=== PATIENT | male | born 1945 | race Caucasian/White ===

== ENCOUNTER 2019-01-13 16:13 | Emergency (ER) | payer MEDICARE ==
[~2019-01-13] VITALS: Ht 177.8 cm; Wt 86.0 kg
[~2019-01-13 16:13] MED LIST: ADLT ASA LOW81 MG PO; ALEVE220 MG OR; BABY ASPIRIN81 MG OR; CARDURA2 MG PO; CYANOCOBALAM1000 MCG IM; DILANTIN100 MG OR; DILANTIN100 MG PO; DOXYCYCL HYC100 MG PO; FLEXERIL OR; GRALISE300 MG PO; IBUPROFEN800 MG PO; ICY HOT; LORAZEPAM0.5 MG PO; LORTAB 5 OR; LORTAB 7.5-3251 TAB PO; MELOXICAM7.5 MG PO; MOTRIN800 MG PO; NAPROSYN500 MG OR; NEURONTIN300 MG PO; NEURONTIN600 MG PO; NYSTATIN100000 M1 PO; TRAMADOL HCL50 MG OR; VALTREX1 GM PO; VICOPROFEN OR; ZPAK PO
[2019-01-13 17:14] LABS: HEMATOCRIT 44.4 % (39.0-50.0); HEMOGLOBIN 14.6 g/dl (14.0-18.0); IMMATURE GRANULOCYTES 0.3 % (0.0-5.0); MEAN CELL VOLUME 92.1 fL CALC (80.0-100.0); MEAN CORPUSCULAR HGB 30.3 pG CALC (26.0-32.0); MEAN CORPUSCULAR HGB CONC 32.9 g/L CALC (32.0-36.0); NEUT# 11.34 thou/uL (1.82-7.42); RED BLOOD COUNT 4.82 mill/uL (4.70-6.10); RED CELL DISTRI WIDTH 14.3 % (11.5-15.5)
[2019-01-13 17:34] LABS: ALBUMIN 3.8 g/dL (3.2-5.0); ALKALINE PHOSPHATASE 125 u/l (38-126); ANION GAP 13 (6-22 (CALC)); BILIRUBIN, TOTAL 0.4 mg/dL (0.0-1.4); BUN 23 mg/dL (8-23); BUN/CREATININE RATIO 37 (12-20 (CALC)); CARBON DIOXIDE 24 mmol/l (22-30); CHLORIDE 105 mmol/l (95-108); CREATININE 0.6 mg/dL (0.7-1.3); GFR > 60 ML/MIN (>=60 (CALC)); GFR FOR AFR.AMER. > 60 ML/MIN (>=60 (CALC)); POTASSIUM 4.4 mmol/l (3.5-5.1); SGOT/AST 17 u/l (19-48); SODIUM 137 mmol/l (137-146); TOTAL PROTEIN 6.2 g/dL (6.3-8.2)
[2019-01-13] MEDS ORDERED: CIPROFLOXACN500 MG PO (17:40)
[2019-01-13] MEDS ORDERED: ZOFRAN4 M1 PO (17:40)
[2019-01-13 17:47] VITALS: BP 122/60
== END 2019-01-13 17:59 | disposition home or self-care (01) ==
LOC: ED 16:13
PROVIDERS: Emergency Medicine
DX: K52.9 Noninfective gastroenteritis and colitis, unspecified (principal); R11.2 Nausea with vomiting, unspecified; R19.7 Diarrhea, unspecified; R50.9 Fever, unspecified; R53.1 Weakness

== ENCOUNTER 2019-03-25 19:20 | Emergency (ER) | payer MEDICARE ==
[~2019-03-25] VITALS: Ht 177.8 cm; Wt 86.0 kg
[~2019-03-25 19:20] MED LIST changes: +CIPROFLOXACN500 MG PO; +ZOFRAN4 M1 PO
[2019-03-25] MEDS ORDERED: MYSOLINE50 M1 PO (19:42)
[2019-03-25] MEDS ORDERED: OXYCODO-APAP1 TA2 PO (19:44)
[2019-03-25] MEDS ORDERED: ALPRAZOLAM ER0.5 MG PO (19:47)
[2019-03-25 21:46] VITALS: BP 159/72
== END 2019-03-25 21:52 | disposition home or self-care (01) ==
LOC: ED 19:20
DX: K59.00 Constipation, unspecified (principal)

== ENCOUNTER 2019-09-07 | Emergency (ER) | payer MEDICARE ==
[~2019-09-07] MED LIST changes: +ALPRAZOLAM ER0.5 MG PO; +MYSOLINE50 M1 PO; +OXYCODO-APAP1 TA2 PO
[2019-09-07] MEDS ORDERED: CEPHALEXIN500 M1 PO (11:32)
== END 2019-09-07 12:15 | disposition home or self-care (01) ==
PROC: 0HQEXZZ Repair Left Lower Arm Skin, External Approach (ICD-10-PCS; principal; 2019-09-07)
DX: S51.812A Laceration without foreign body of left forearm, initial encounter (principal); W19.XXXA Unspecified fall, initial encounter

== ENCOUNTER 2019-10-07 | Emergency (ER) | payer MEDICARE ==
[~2019-10-07] MED LIST changes: +CEPHALEXIN500 M1 PO
[2019-10-07] MEDS ORDERED: FLEXERIL PO (08:40)
[2019-10-07] MEDS ORDERED: MEDDOSEPAK PO (08:40)
== END 2019-10-07 09:00 | disposition home or self-care (01) ==
DX: G89.29 Other chronic pain (principal); M16.12 Unilateral primary osteoarthritis, left hip; M47.816 Spondylosis without myelopathy or radiculopathy, lumbar region; Z79.891 Long term (current) use of opiate analgesic

== ENCOUNTER 2020-01-23 10:33 | Observation (INO) | payer MEDICARE ==
[~2020-01-23] VITALS: Ht 177.8 cm; Wt 92.5 kg
[~2020-01-23 10:33] MED LIST changes: +FLEXERIL PO; +MEDDOSEPAK PO
[2020-01-23] MEDS ORDERED: PHENYTOIN EX100 MG PO ×2 (10:54→10:55)
[2020-01-23] MEDS ORDERED: DOXAZOSIN4 MG PO (10:55)
[2020-01-23] MEDS ORDERED: PRESERVISION PO (10:56)
[2020-01-23] MEDS ORDERED: STOOL SOFTE1 PO (10:56)
[2020-01-23 11:07] LABS: HEMATOCRIT 42.7 % (39.0-50.0); HEMOGLOBIN 14.4 g/dl (14.0-18.0); IMMATURE GRANULOCYTES 0.2 % (0.0-5.0); MEAN CELL VOLUME 94.3 fL CALC (80.0-100.0); MEAN CORPUSCULAR HGB 31.8 pG CALC (26.0-32.0); MEAN CORPUSCULAR HGB CONC 33.7 g/dL CAL (32.0-36.0); NEUT# 3.42 thou/uL (1.82-7.42); RED BLOOD COUNT 4.53 mill/uL (4.70-6.10); RED CELL DISTRI WIDTH 13.6 % (11.5-15.5)
[2020-01-23 11:18] LABS: ALBUMIN 3.8 g/dL (3.2-5.0); ALKALINE PHOSPHATASE 102 u/l (38-126); ANION GAP 10 (6-22 (CALC)); BILIRUBIN, TOTAL 0.3 mg/dL (0.0-1.4); BUN 21 mg/dL (8-23); BUN/CREATININE RATIO 37 (12-20 (CALC)); CARBON DIOXIDE 24 mmol/l (22-30); CHLORIDE 106 mmol/l (95-108); CREATININE 0.6 mg/dL (0.7-1.3); GFR > 60 ML/MIN (>=60 (CALC)); GFR FOR AFR.AMER. > 60 ML/MIN (>=60 (CALC)); POTASSIUM 4.2 mmol/l (3.5-5.1); SGOT/AST 23 u/l (19-48); SODIUM 136 mmol/l (137-146); TOTAL PROTEIN 6.6 g/dL (6.3-8.2)
[2020-01-23 14:04] VITALS: BP 128/67
[2020-01-23 18:45] VITALS: BP 115/61
[2020-01-23 23:40] VITALS: BP 118/66
[2020-01-24 03:55] VITALS: BP 112/66
[2020-01-24 06:03] LABS: CHOLESTEROL HDL RATIO 4.9 (<4.4 (CALC))
[2020-01-24 08:47] VITALS: BP 118/58
[2020-01-24 10:48] VITALS: BP 122/65
== END 2020-01-24 14:23 | disposition home or self-care (01) ==
LOC: ED 10:33 → ED-I 11:40 → ED 11:55 → MS2 11:56 → ED-I 11:56 → MS2 12:54
PROVIDERS: Family Medicine; ADMIT Internal Medicine; ATTEND Internal Medicine
DX: R07.2 Precordial pain (principal); R20.2 Paresthesia of skin; G40.909 Epilepsy, unspecified, not intractable, without status epilepticus; Z87.891 Personal history of nicotine dependence; Z11.59 Encounter for screening for other viral diseases
CPT/HCPCS: G0378

== ENCOUNTER 2020-08-17 10:32 | Emergency (ER) | payer MEDICARE ==
[~2020-08-17] VITALS: Ht 177.8 cm; Wt 88.0 kg
[~2020-08-17 10:32] MED LIST changes: +DOXAZOSIN4 MG PO; +PHENYTOIN EX100 MG PO; +PRESERVISION PO; +STOOL SOFTE1 PO
[2020-08-17] MEDS ORDERED: TAMSULOSIN HCL0.4 MG PO (11:52)
[2020-08-17] MEDS ORDERED: DITROPAN5 MG/TA1 PO (11:53)
[2020-08-17] MEDS ORDERED: BICALUTAMIDE50 MG PO (11:54)
[2020-08-17 12:30] VITALS: BP 121/74
== END 2020-08-17 12:31 | disposition home or self-care (01) ==
LOC: ED 10:32
DX: M17.11 Unilateral primary osteoarthritis, right knee (principal); F41.9 Anxiety disorder, unspecified; G40.909 Epilepsy, unspecified, not intractable, without status epilepticus

== ENCOUNTER 2021-05-07 00:28 | Emergency (ER) | payer MEDICARE ==
[~2021-05-07] VITALS: Ht 170.2 cm; Wt 81.0 kg
[~2021-05-07 00:28] MED LIST changes: +BICALUTAMIDE50 MG PO; +DITROPAN5 MG/TA1 PO; +TAMSULOSIN HCL0.4 MG PO
[2021-05-07 00:45] VITALS: BP 137/73
[2021-05-07] MEDS ORDERED: PHENYTOIN EX100 M1 PO (01:14)
[2021-05-07] MEDS ORDERED: ASPIRIN LOW81 M1 PO (01:15)
[2021-05-07] MEDS ORDERED: [UNRECOGNIZED DRUG - OTHER] (01:16)
[2021-05-07] MEDS ORDERED: PRIMIDONE50 MG PO ×2 (01:16→01:19)
[2021-05-07] MEDS ORDERED: ALPRAZOLAM1 MG PO (01:17)
[2021-05-07] MEDS ORDERED: OXYCODO-APAP1 TA2 PO (01:18)
[2021-05-07] MEDS ORDERED: DOXAZOSIN1 MG PO (01:19)
== END 2021-05-07 02:37 | disposition home or self-care (01) ==
LOC: ED 00:28
DX: S16.1XXA Strain of muscle, fascia and tendon at neck level, initial encounter (principal); M47.812 Spondylosis without myelopathy or radiculopathy, cervical region; G40.909 Epilepsy, unspecified, not intractable, without status epilepticus; F41.9 Anxiety disorder, unspecified; I20.9 Angina pectoris, unspecified; X50.0XXA Overexertion from strenuous movement or load, initial encounter; Y93.H2 Activity, gardening and landscaping; Z85.46 Personal history of malignant neoplasm of prostate

== ENCOUNTER 2021-05-08 23:02 | Emergency (ER) | payer MEDICARE ==
[~2021-05-08] VITALS: Ht 170.2 cm; Wt 81.0 kg
[~2021-05-08 23:02] MED LIST changes: +ALPRAZOLAM1 MG PO; +ASPIRIN LOW81 M1 PO; +DOXAZOSIN1 MG PO; +PHENYTOIN EX100 M1 PO; +PRIMIDONE50 MG PO; +[UNRECOGNIZED DRUG - OTHER]
[2021-05-09] MEDS ORDERED: STERAPRED DS10 MG PO
[2021-05-09 00:35] VITALS: BP 116/73
== END 2021-05-09 00:36 | disposition home or self-care (01) ==
LOC: ED 23:02
DX: M47.22 Other spondylosis with radiculopathy, cervical region (principal); G40.909 Epilepsy, unspecified, not intractable, without status epilepticus; F41.9 Anxiety disorder, unspecified

== ENCOUNTER 2021-06-03 11:26 | Observation (INO) | payer MEDICARE ==
[~2021-06-03] VITALS: Ht 167.6 cm; Wt 85.0 kg
[~2021-06-03 11:26] MED LIST changes: -DOXAZOSIN1 MG PO; -PHENYTOIN EX100 M1 PO; +STERAPRED DS10 MG PO
[2021-06-03 12:21] LABS: HEMATOCRIT 42.6 % (39.0-50.0); MEAN CELL VOLUME 100.7 fL CALC (80.0-100.0); MEAN CORPUSCULAR HGB 33.1 pG CALC (26.0-32.0); MEAN CORPUSCULAR HGB CONC 32.9 g/dL CAL (32.0-36.0); NEUT# 3.23 thou/uL (1.82-7.42); RED BLOOD COUNT 4.23 mill/uL (4.70-6.10); RED CELL DISTRI WIDTH 13.6 % (11.5-15.5)
[2021-06-03 12:37] LABS: ALBUMIN 3.8 g/dL (3.2-5.0); ALKALINE PHOSPHATASE 117 u/l (38-126); ANION GAP 10 (6-22 (CALC)); BILIRUBIN, TOTAL 0.4 mg/dL (0.0-1.4); BUN 20 mg/dL (8-23); BUN/CREATININE RATIO 36 (12-20 (CALC)); CARBON DIOXIDE 29 mmol/l (22-30); CHLORIDE 105 mmol/l (95-108); CREATININE 0.6 mg/dL (0.7-1.3); GFR > 60 ML/MIN (>=60 (CALC)); GFR FOR AFR.AMER. > 60 ML/MIN (>=60 (CALC)); POTASSIUM 4.3 mmol/l (3.5-5.1); SGOT/AST 22 u/l (19-48); SODIUM 139 mmol/l (137-146); TOTAL PROTEIN 6.5 g/dL (6.3-8.2)
[2021-06-03 12:49] LABS: MYOGLOBIN 34 ng/mL (0 - 121)
[2021-06-03] MEDS ORDERED: TAMSULOSIN HCL0.4 MG PO (16:11)
[2021-06-03] MEDS ORDERED: DILANTIN100 MG PO (16:12)
[2021-06-03] MEDS ORDERED: DIAZEPAM5 MG PO (16:13)
[2021-06-03 17:33] VITALS: BP 147/75
[2021-06-03 19:00] VITALS: BP 154/67
[2021-06-04] VITALS: BP 148/69
[2021-06-04 04:00] VITALS: BP 136/65
[2021-06-04 05:38] LABS: HEMATOCRIT 40.1 % (39.0-50.0); HEMOGLOBIN 13.3 g/dl (14.0-18.0); MEAN CORPUSCULAR HGB 33.2 pG CALC (26.0-32.0); MEAN CORPUSCULAR HGB CONC 33.2 g/dL CAL (32.0-36.0); RED BLOOD COUNT 4.01 mill/uL (4.70-6.10); RED CELL DISTRI WIDTH 13.5 % (11.5-15.5)
[2021-06-04 05:44] LABS: ANION GAP 9 (6-22 (CALC)); BUN 19 mg/dL (8-23); BUN/CREATININE RATIO 36 (12-20 (CALC)); CALCULATED LDLCHOLESTEROL 87 mg/dL (62-129 (CALC)); CARBON DIOXIDE 24 mmol/l (22-30); CHLORIDE 109 mmol/l (95-108); CREATININE 0.5 mg/dL (0.7-1.3); GFR > 60 ML/MIN (>=60 (CALC)); GFR FOR AFR.AMER. > 60 ML/MIN (>=60 (CALC)); HDL CHOLESTEROL 30 mg/dL (>=40); MAGNESIUM 1.9 mg/dL (1.6-2.3); POTASSIUM 4.3 mmol/l (3.5-5.1); SODIUM 137 mmol/l (137-146); TOTAL CHOLESTEROL 149 mg/dl (0-199); TOTAL TRIGLYCERIDES 164 mg/dl (30-149); VLDL CHOLESTROL 33 mg/dl (0-38 (CALC))
[2021-06-04 08:12] VITALS: BP 135/67
[2021-06-04 11:55] VITALS: BP 133/56
== END 2021-06-04 13:59 | disposition home or self-care (01) ==
LOC: ED 11:26 → ED-I 15:18 → MS2 15:19
PROVIDERS: Emergency Medicine; Nurse Practitioner; ADMIT Internal Medicine; ATTEND Internal Medicine
DX: R07.2 Precordial pain (principal); G40.909 Epilepsy, unspecified, not intractable, without status epilepticus; G89.29 Other chronic pain; F41.9 Anxiety disorder, unspecified; Z85.46 Personal history of malignant neoplasm of prostate; Z79.82 Long term (current) use of aspirin; Z20.822 Contact with and (suspected) exposure to COVID-19
CPT/HCPCS: G0378; J1650

== ENCOUNTER 2022-01-09 18:34 | Emergency (ER) | payer MEDICARE ==
[~2022-01-09] VITALS: Ht 170.2 cm; Wt 77.7 kg
[~2022-01-09 18:34] MED LIST changes: +DIAZEPAM5 MG PO
[2022-01-09 18:39] VITALS: BP 136/93
[2022-01-09 18:45] VITALS: BP 132/80
[2022-01-09 19:00] VITALS: BP 136/77
[2022-01-09 19:16] VITALS: BP 130/91
[2022-01-09 19:30] VITALS: BP 144/86
[2022-01-09] MEDS ORDERED: DIPHENHYDRAM50 M2 PO (19:43)
[2022-01-09] MEDS ORDERED: BENADRY2 EX (19:43)
[2022-01-09] MEDS ORDERED: AMOXICILLIN500 MG PO (19:43)
[2022-01-09 19:45] VITALS: BP 138/93
== END 2022-01-09 19:52 | disposition home or self-care (01) ==
LOC: ED 18:34
DX: S90.862A Insect bite (nonvenomous), left foot, initial encounter (principal); G40.909 Epilepsy, unspecified, not intractable, without status epilepticus; F41.9 Anxiety disorder, unspecified; W57.XXXA Bitten or stung by nonvenomous insect and other nonvenomous arthropods, initial encounter; Y93.53 Activity, golf

== ENCOUNTER 2022-04-01 21:12 | Emergency (ER) | payer MEDICARE ==
[~2022-04-01] VITALS: Ht 170.2 cm; Wt 79.0 kg
[~2022-04-01 21:12] MED LIST changes: +AMOXICILLIN500 MG PO; +BENADRY2 EX; +DIPHENHYDRAM50 M2 PO
[2022-04-01] MEDS ORDERED: NAPROXEN500 MG PO (22:58)
[2022-04-01 23:55] VITALS: BP 101/78
== END 2022-04-01 23:55 | disposition home or self-care (01) ==
LOC: ED 21:12
DX: S63.501A Unspecified sprain of right wrist, initial encounter (principal); M19.031 Primary osteoarthritis, right wrist; G40.909 Epilepsy, unspecified, not intractable, without status epilepticus; F41.9 Anxiety disorder, unspecified; X58.XXXA Exposure to other specified factors, initial encounter

== ENCOUNTER 2022-04-10 11:28 | Emergency (ER) | payer MEDICARE ==
[~2022-04-10] VITALS: Ht 170.2 cm; Wt 81.8 kg
[~2022-04-10 11:28] MED LIST changes: +NAPROXEN500 MG PO
[2022-04-10 11:36] VITALS: BP 139/98
[2022-04-10 11:45] VITALS: BP 127/83
[2022-04-10] MEDS ORDERED: AMOX/K CLAV875 M1 PO (13:33)
[2022-04-10 14:40] VITALS: BP 127/83
== END 2022-04-10 14:47 | disposition home or self-care (01) ==
LOC: ED 11:28
PROC: 0HQ1XZZ Repair Face Skin, External Approach (ICD-10-PCS; principal; 2022-04-10)
DX: S02.31XA Fracture of orbital floor, right side, initial encounter for closed fracture (principal); S01.111A Laceration without foreign body of right eyelid and periocular area, initial encounter; S80.211A Abrasion, right knee, initial encounter; G40.909 Epilepsy, unspecified, not intractable, without status epilepticus; F41.9 Anxiety disorder, unspecified; W01.0XXA Fall on same level from slipping, tripping and stumbling without subsequent striking against object, initial encounter; Y92.009 Unspecified place in unspecified non-institutional (private) residence as the place of occurrence of the external cause

== ENCOUNTER 2022-04-18 12:24 | Emergency (ER) | payer MEDICARE ==
[~2022-04-18] VITALS: Ht 170.2 cm; Wt 79.5 kg
[~2022-04-18 12:24] MED LIST changes: +AMOX/K CLAV875 M1 PO
[2022-04-18 12:30] VITALS: BP 123/83
== END 2022-04-18 13:20 | disposition home or self-care (01) ==
LOC: ED 12:24
DX: Z48.02 Encounter for removal of sutures (principal)

== ENCOUNTER 2022-08-03 23:02 | Emergency (ER) | payer MEDICARE ==
[~2022-08-03] VITALS: Ht 170.2 cm; Wt 81.8 kg
[2022-08-03 23:16] VITALS: BP 105/87
[2022-08-03 23:31] VITALS: BP 121/68
[2022-08-03] MEDS ORDERED: ALPRAZOLAM0.5 MG PO (23:35)
[2022-08-03] MEDS ORDERED: PREGABALIN75 MG PO (23:40)
[2022-08-03] MEDS ORDERED: OXYCODO-APAP1 TA2 PO (23:41)
[2022-08-03 23:45] VITALS: BP 126/85
[2022-08-03 23:51] LABS: HEMATOCRIT 39.3 % (39.0-50.0); HEMOGLOBIN 13.3 g/dl (14.0-18.0); MEAN CORPUSCULAR HGB 33.2 pG CALC (26.0-32.0); MEAN CORPUSCULAR HGB CONC 33.8 g/dL CAL (32.0-36.0); NEUT# 5.51 thou/uL (1.82-7.42); RED BLOOD COUNT 4.01 mill/uL (4.70-6.10); RED CELL DISTRI WIDTH 13.7 % (11.5-15.5)
[2022-08-04 00:06] LABS: ALBUMIN 3.7 g/dL (3.2-5.0); ALKALINE PHOSPHATASE 111 u/l (38-126); ANION GAP 10 (6-22 (CALC)); BILIRUBIN, TOTAL 0.2 mg/dL (0.0-1.4); BUN 23 mg/dL (8-23); BUN/CREATININE RATIO 35 (12-20 (CALC)); CARBON DIOXIDE 26 mmol/l (22-30); CHLORIDE 110 mmol/l (95-108); CREATININE 0.7 mg/dL (0.7-1.3); GFR FOR AFR.AMER. > 60 ML/MIN (>=60 (CALC)); GFR OTHER RACES > 60 ML/MIN (>=60 (CALC)); SGOT/AST 20 u/l (19-48); SODIUM 142 mmol/l (137-146); TOTAL PROTEIN 6.4 g/dL (6.3-8.2)
[2022-08-04 00:15] VITALS: BP 126/82
[2022-08-04 00:18] LABS: URINE BILIRUBIN - DIPSTICK NEGATIVE (NEGATIVE); URINE BLOOD DIPSTICK LARGE (NEGATIVE); URINE COLOR YELLOW; URINE GLUCOSE - DIPSTICK NEGATIVE (NEGATIVE); URINE KETONE TRACE mg/dL (NEGATIVE); URINE LEUK ESTERASE MODERATE (NEGATIVE); URINE NITRITE - DIPSTICK POSITIVE (Negative); URINE PROTEIN - DIPSTICK 100 mg/dL (NEG-TRACE); URINE SPECIFIC GRAVITY >=1.030; URINE UROBILINOGEN - DIPSTICK 0.2 E.U./dL (0.2)
[2022-08-04 00:19] LABS: URINE BACTERIA MANY hpf; URINE MUCUS FEW hpf (NONE-FEW); URINE SQUAMOUS EPITHELIAL CELL FEW EPI/hpf (0-FEW); URINE WBC 50-100 WBC/hpf (0-5)
[2022-08-04 00:30] VITALS: BP 127/75
[2022-08-04] MEDS ORDERED: BACTRIM DS1 TAB PO (00:39)
[2022-08-04] MEDS ORDERED: CITRATE OF MEGNESIA PO (00:39)
[2022-08-04 00:45] VITALS: BP 133/78
[2022-08-04 01:00] VITALS: BP 129/78
[2022-08-04 01:15] VITALS: BP 139/75
== END 2022-08-04 01:24 | disposition home or self-care (01) ==
LOC: ED 23:02
PROVIDERS: Family Medicine
DX: N39.0 Urinary tract infection, site not specified (principal); B96.20 Unspecified Escherichia coli [E. coli] as the cause of diseases classified elsewhere; K59.00 Constipation, unspecified; C61 Malignant neoplasm of prostate; G40.909 Epilepsy, unspecified, not intractable, without status epilepticus; F41.9 Anxiety disorder, unspecified

== ENCOUNTER 2022-11-08 20:41 | Inpatient (IN) | payer MEDICARE ==
[~2022-11-08] VITALS: Ht 170.2 cm; Wt 89.4 kg
[~2022-11-08 20:41] MED LIST changes: +ALPRAZOLAM0.5 MG PO; +BACTRIM DS1 TAB PO; +CITRATE OF MEGNESIA PO; +PREGABALIN75 MG PO
[2022-11-08 20:49] VITALS: BP 130/73
[2022-11-08 21:01] VITALS: BP 149/104
[2022-11-08 21:41] LABS: EOS% 0.3 % (0-8); HEMATOCRIT 37.3 % (39.0-50.0); HEMOGLOBIN 12.4 g/dl (14.0-18.0); IMMATURE GRANULOCYTES 0.5 % (0.0-5.0); LYMPH% 5.2 % (15-41); MEAN CELL VOLUME 95.2 fL CALC (80.0-100.0); MEAN CORPUSCULAR HGB 31.6 pG CALC (26.0-32.0); MEAN CORPUSCULAR HGB CONC 33.2 g/dL CAL (32.0-36.0); MONO% 3.6 % (2-13); NEUT# 3.29 thou/uL (1.82-7.42); NEUT% 90.4 % (42-76); RED BLOOD COUNT 3.92 mill/uL (4.70-6.10); RED CELL DISTRI WIDTH 13.3 % (11.5-15.5)
[2022-11-08 21:46] VITALS: BP 128/89
[2022-11-08 21:55] LABS: INTERNATIONAL NORMALIZED RATIO 1.2 RATIO (0.7-1.3); PROTHROMBIN TIME 11.9 SECONDS (9.0-12.5)
[2022-11-08 21:56] LABS: ALBUMIN 3.4 g/dL (3.2-5.0); ALKALINE PHOSPHATASE 111 u/l (38-126); CHLORIDE 95 mmol/l (95-108); ETHYL ALCOHOL 0 mg/dl (0-30); POTASSIUM 4.4 mmol/l (3.5-5.1); TOTAL PROTEIN 5.9 g/dL (6.3-8.2)
[2022-11-08 22:01] VITALS: BP 138/58
[2022-11-08 22:07] LABS: ANION GAP 14 (6-22 (CALC)); BILIRUBIN, TOTAL 0.6 mg/dL (0.2-1.3); BUN 63 mg/dL (8-23); BUN/CREATININE RATIO 13 (12-20 (CALC)); CARBON DIOXIDE 21 mmol/l (22-30); GFR FOR AFR.AMER. 14 ML/MIN (>=60 (CALC)); GFR OTHER RACES 11 ML/MIN (>=60 (CALC)); SGOT/AST 365 u/l (19-48); SODIUM 126 mmol/l (137-146)
[2022-11-08 23:39] LABS: URINE BILIRUBIN - DIPSTICK NEGATIVE (NEGATIVE); URINE BLOOD DIPSTICK LARGE (NEGATIVE); URINE COLOR YELLOW; URINE GLUCOSE - DIPSTICK NEGATIVE (NEGATIVE); URINE KETONE NEGATIVE (NEGATIVE); URINE LEUK ESTERASE NEGATIVE (NEGATIVE); URINE PROTEIN - DIPSTICK NEGATIVE (NEG-TRACE); URINE SPECIFIC GRAVITY 1.015; URINE UROBILINOGEN - DIPSTICK 0.2 E.U./dL (0.2)
[2022-11-08 23:53] LABS: URINE NITRITE - DIPSTICK NEGATIVE (Negative)
[2022-11-08 23:54] LABS: URINE BACTERIA FEW hpf; URINE RBC 0-2 RBC/hpf (0-5); URINE SQUAMOUS EPITHELIAL CELL FEW EPI/hpf (0-FEW)
[2022-11-09] VITALS (50 sets, daily range): BP systolic 53–155; BP diastolic 38–132
[2022-11-09 08:05] LABS: POTASSIUM 5.6 mmol/l (3.5-5.1)
[2022-11-10] VITALS (7 sets, daily range): BP systolic 112–137; BP diastolic 68–82
[2022-11-10 05:22] LABS: HEMATOCRIT 35.5 % (39.0-50.0); HEMOGLOBIN 11.8 g/dl (14.0-18.0); IMMATURE GRANULOCYTES 0.3 % (0.0-5.0); LYMPH% 4.2 % (15-41); MEAN CELL VOLUME 95.7 fL CALC (80.0-100.0); MEAN CORPUSCULAR HGB 31.8 pG CALC (26.0-32.0); MEAN CORPUSCULAR HGB CONC 33.2 g/dL CAL (32.0-36.0); MONO% 4.1 % (2-13); NEUT# 5.84 thou/uL (1.82-7.42); NEUT% 91.4 % (42-76); RED BLOOD COUNT 3.71 mill/uL (4.70-6.10); RED CELL DISTRI WIDTH 13.6 % (11.5-15.5)
[2022-11-10 06:02] LABS: ALBUMIN 3.1 g/dL (3.2-5.0); TOTAL PROTEIN 5.8 g/dL (6.3-8.2)
[2022-11-10 06:22] LABS: BILIRUBIN, TOTAL 0.2 mg/dL (0.2-1.3); C-REACTIVE PROTEIN 19.5 mg/dL (0-0.9); POTASSIUM 5.6 mmol/l (3.5-5.1)
[2022-11-10 06:23] LABS: CREATININE 5.6 mg/dL (0.7-1.3)
[2022-11-10] MEDS ORDERED: PHENYTOIN EX100 M1 PO (14:29)
[2022-11-10] MEDS ORDERED: DOK100 MG PO (14:32)
[2022-11-10] MEDS ORDERED: ASPIRIN81 MG PO (14:32)
[2022-11-10] MEDS ORDERED: DICLOFENAC SODIUM1 % TD (14:37)
[2022-11-10] MEDS ORDERED: OMEPRAZOLE20 MG PO (14:38)
[2022-11-10] MEDS ORDERED: PAXLOVID PO (14:40)
[2022-11-10] MEDS ORDERED: PROMETHAZINE/COD1 ML PO (14:49)
[2022-11-11 03:08] VITALS: BP 138/75
[2022-11-11 05:15] LABS: HEMATOCRIT 37.2 % (39.0-50.0); HEMOGLOBIN 12.3 g/dl (14.0-18.0); MEAN CELL VOLUME 95.1 fL CALC (80.0-100.0); MEAN CORPUSCULAR HGB 31.5 pG CALC (26.0-32.0); MEAN CORPUSCULAR HGB CONC 33.1 g/dL CAL (32.0-36.0); RED BLOOD COUNT 3.91 mill/uL (4.70-6.10); RED CELL DISTRI WIDTH 13.4 % (11.5-15.5)
[2022-11-11 05:36] LABS: ALBUMIN 3.1 g/dL (3.2-5.0); MAGNESIUM 2.3 mg/dL (1.6-2.3)
[2022-11-11 05:41] LABS: BILIRUBIN, TOTAL 0.3 mg/dL (0.2-1.3); CREATININE 5.3 mg/dL (0.7-1.3); POTASSIUM 5.5 mmol/l (3.5-5.1)
[2022-11-11 19:54] VITALS: BP 132/71
[2022-11-12] VITALS (7 sets, daily range): BP systolic 116–141; BP diastolic 59–77
[2022-11-12 06:19] LABS: EOS% 0.2 % (0-8); HEMATOCRIT 35.1 % (39.0-50.0); HEMOGLOBIN 11.8 g/dl (14.0-18.0); IMMATURE GRANULOCYTES 1.2 % (0.0-5.0); MEAN CELL VOLUME 94.1 fL CALC (80.0-100.0); MEAN CORPUSCULAR HGB 31.6 pG CALC (26.0-32.0); MEAN CORPUSCULAR HGB CONC 33.6 g/dL CAL (32.0-36.0); MONO% 14.4 % (2-13); NEUT# 3.32 thou/uL (1.82-7.42); NEUT% 77.2 % (42-76); RED BLOOD COUNT 3.73 mill/uL (4.70-6.10); RED CELL DISTRI WIDTH 13.9 % (11.5-15.5)
[2022-11-12 07:14] LABS: ALBUMIN 2.7 g/dL (3.2-5.0); BILIRUBIN, TOTAL 0.3 mg/dL (0.2-1.3); C-REACTIVE PROTEIN 6.1 mg/dL (0-0.9); CREATININE 4.8 mg/dL (0.7-1.3); POTASSIUM 4.6 mmol/l (3.5-5.1); TOTAL PROTEIN 5.3 g/dL (6.3-8.2)
[2022-11-13 05:30] VITALS: BP 134/73
[2022-11-13 05:44] LABS: HEMATOCRIT 34.3 % (39.0-50.0); HEMOGLOBIN 11.3 g/dl (14.0-18.0); MEAN CELL VOLUME 94.8 fL CALC (80.0-100.0); MEAN CORPUSCULAR HGB 31.2 pG CALC (26.0-32.0); MEAN CORPUSCULAR HGB CONC 32.9 g/dL CAL (32.0-36.0); RED BLOOD COUNT 3.62 mill/uL (4.70-6.10); RED CELL DISTRI WIDTH 13.9 % (11.5-15.5)
[2022-11-13 05:54] LABS: ALBUMIN 2.5 g/dL (3.2-5.0); CREATININE 4.1 mg/dL (0.7-1.3); POTASSIUM 4.4 mmol/l (3.5-5.1)
[2022-11-13 09:42] VITALS: BP 137/75
[2022-11-13 14:15] VITALS: BP 136/63
[2022-11-13 19:00] VITALS: BP 136/63
[2022-11-13 23:13] VITALS: BP 138/43
[2022-11-14] VITALS (11 sets, daily range): BP systolic 131–197; BP diastolic 43–174
[2022-11-14 05:30] LABS: BASO% 0.3 % (0-3); EOS% 4.7 % (0-8); HEMATOCRIT 32.9 % (39.0-50.0); IMMATURE GRANULOCYTES 2.5 % (0.0-5.0); LYMPH% 4.4 % (15-41); MEAN CELL VOLUME 95.6 fL CALC (80.0-100.0); MEAN CORPUSCULAR HGB CONC 33.4 g/dL CAL (32.0-36.0); MONO% 10.4 % (2-13); NEUT# 5.31 thou/uL (1.82-7.42); NEUT% 77.7 % (42-76); RED BLOOD COUNT 3.44 mill/uL (4.70-6.10); RED CELL DISTRI WIDTH 13.7 % (11.5-15.5)
[2022-11-14 05:49] LABS: ALBUMIN 2.7 g/dL (3.2-5.0); BILIRUBIN, TOTAL 0.4 mg/dL (0.2-1.3); CREATININE 3.6 mg/dL (0.7-1.3); POTASSIUM 4.3 mmol/l (3.5-5.1); TOTAL PROTEIN 5.1 g/dL (6.3-8.2)
[2022-11-15 02:41] VITALS: BP 155/74
[2022-11-15 05:25] LABS: BASO% 0.3 % (0-3); EOS% 4.1 % (0-8); HEMATOCRIT 35.6 % (39.0-50.0); HEMOGLOBIN 11.9 g/dl (14.0-18.0); IMMATURE GRANULOCYTES 1.8 % (0.0-5.0); LYMPH% 3.2 % (15-41); MEAN CORPUSCULAR HGB 32.1 pG CALC (26.0-32.0); MEAN CORPUSCULAR HGB CONC 33.4 g/dL CAL (32.0-36.0); MONO% 8.9 % (2-13); NEUT# 7.72 thou/uL (1.82-7.42); NEUT% 81.7 % (42-76); RED BLOOD COUNT 3.71 mill/uL (4.70-6.10); RED CELL DISTRI WIDTH 13.4 % (11.5-15.5)
[2022-11-15 05:29] LABS: ALBUMIN 3.1 g/dL (3.2-5.0); BILIRUBIN, TOTAL 0.4 mg/dL (0.2-1.3); POTASSIUM 4.5 mmol/l (3.5-5.1); TOTAL PROTEIN 5.8 g/dL (6.3-8.2)
[2022-11-15 06:07] VITALS: BP 143/63
[2022-11-15 10:40] VITALS: BP 148/60
[2022-11-15 14:50] VITALS: BP 153/67
[2022-11-15 18:09] VITALS: BP 137/77
[2022-11-16 03:44] VITALS: BP 90/62
[2022-11-16 03:46] VITALS: BP 142/74
[2022-11-16 05:23] VITALS: BP 139/107
[2022-11-16 08:16] LABS: BASO% 0.4 % (0-3); EOS% 2.9 % (0-8); HEMATOCRIT 34.3 % (39.0-50.0); HEMOGLOBIN 11.2 g/dl (14.0-18.0); IMMATURE GRANULOCYTES 2.1 % (0.0-5.0); LYMPH% 3.1 % (15-41); MEAN CELL VOLUME 96.3 fL CALC (80.0-100.0); MEAN CORPUSCULAR HGB 31.5 pG CALC (26.0-32.0); MEAN CORPUSCULAR HGB CONC 32.7 g/dL CAL (32.0-36.0); MONO% 7.1 % (2-13); NEUT# 8.37 thou/uL (1.82-7.42); NEUT% 84.4 % (42-76); RED BLOOD COUNT 3.56 mill/uL (4.70-6.10); RED CELL DISTRI WIDTH 13.6 % (11.5-15.5)
[2022-11-16 08:34] LABS: ALBUMIN 3.4 g/dL (3.2-5.0); CREATININE 2.6 mg/dL (0.7-1.3); POTASSIUM 3.9 mmol/l (3.5-5.1)
[2022-11-16 08:44] LABS: BILIRUBIN, TOTAL 0.7 mg/dL (0.2-1.3)
[2022-11-16 09:18] LABS: C-REACTIVE PROTEIN 8.8 mg/dL (0-0.9)
[2022-11-16 18:38] VITALS: BP 136/68
[2022-11-17 06:05] VITALS: BP 164/70
[2022-11-17 07:05] VITALS: BP 164/70
[2022-11-17 07:31] LABS: HEMOGLOBIN 10.1 g/dl (14.0-18.0); MEAN CELL VOLUME 96.9 fL CALC (80.0-100.0); MEAN CORPUSCULAR HGB 31.6 pG CALC (26.0-32.0); MEAN CORPUSCULAR HGB CONC 32.6 g/dL CAL (32.0-36.0); RED BLOOD COUNT 3.2 mill/uL (4.70-6.10); RED CELL DISTRI WIDTH 13.6 % (11.5-15.5)
[2022-11-17 07:51] LABS: ALBUMIN 2.8 g/dL (3.2-5.0); CREATININE 2.3 mg/dL (0.7-1.3); TOTAL PROTEIN 5.1 g/dL (6.3-8.2)
[2022-11-17 08:11] LABS: BILIRUBIN, TOTAL 0.4 mg/dL (0.2-1.3)
[2022-11-17 08:14] LABS: MAGNESIUM 1.5 mg/dL (1.6-2.3)
[2022-11-17 11:04] VITALS: BP 143/65
[2022-11-17 13:58] VITALS: BP 131/71
[2022-11-17 14:58] VITALS: BP 131/71
[2022-11-17 17:52] VITALS: BP 125/65
[2022-11-18] VITALS (10 sets, daily range): BP systolic 98–178; BP diastolic 61–143
[2022-11-18 07:43] LABS: BASO% 0.3 % (0-3); EOS% 0.9 % (0-8); HEMOGLOBIN 10.7 g/dl (14.0-18.0); IMMATURE GRANULOCYTES 0.4 % (0.0-5.0); LYMPH% 3.2 % (15-41); MEAN CELL VOLUME 97.1 fL CALC (80.0-100.0); MEAN CORPUSCULAR HGB 31.5 pG CALC (26.0-32.0); MEAN CORPUSCULAR HGB CONC 32.4 g/dL CAL (32.0-36.0); MONO% 5.5 % (2-13); NEUT# 9.97 thou/uL (1.82-7.42); NEUT% 89.7 % (42-76); RED BLOOD COUNT 3.4 mill/uL (4.70-6.10)
[2022-11-18 08:12] LABS: ALBUMIN 2.9 g/dL (3.2-5.0); BILIRUBIN, TOTAL 0.5 mg/dL (0.2-1.3); CREATININE 1.9 mg/dL (0.7-1.3); POTASSIUM 3.9 mmol/l (3.5-5.1); TOTAL PROTEIN 5.5 g/dL (6.3-8.2)
[2022-11-18 08:49] LABS: C-REACTIVE PROTEIN 18.1 mg/dL (0-0.9)
[2022-11-19] VITALS (75 sets, daily range): BP systolic 109–195; BP diastolic 64–160
[2022-11-19 05:42] LABS: BASO% 0.3 % (0-3); EOS% 0.5 % (0-8); HEMATOCRIT 34.4 % (39.0-50.0); HEMOGLOBIN 11.1 g/dl (14.0-18.0); IMMATURE GRANULOCYTES 0.2 % (0.0-5.0); LYMPH% 4.1 % (15-41); MEAN CELL VOLUME 97.2 fL CALC (80.0-100.0); MEAN CORPUSCULAR HGB 31.4 pG CALC (26.0-32.0); MEAN CORPUSCULAR HGB CONC 32.3 g/dL CAL (32.0-36.0); MONO% 5.3 % (2-13); NEUT# 8.26 thou/uL (1.82-7.42); NEUT% 89.6 % (42-76); RED BLOOD COUNT 3.54 mill/uL (4.70-6.10); RED CELL DISTRI WIDTH 13.1 % (11.5-15.5)
[2022-11-19 05:57] LABS: BILIRUBIN, TOTAL 0.4 mg/dL (0.2-1.3); CREATININE 1.7 mg/dL (0.7-1.3); POTASSIUM 4.1 mmol/l (3.5-5.1); TOTAL PROTEIN 5.7 g/dL (6.3-8.2)
[2022-11-19 06:00] LABS: MAGNESIUM 1.9 mg/dL (1.6-2.3)
[2022-11-20] VITALS (25 sets, daily range): BP systolic 114–172; BP diastolic 66–123
[2022-11-20 04:57] LABS: ALBUMIN 2.7 g/dL (3.2-5.0); CREATININE 1.4 mg/dL (0.7-1.3); POTASSIUM 4.2 mmol/l (3.5-5.1)
[2022-11-21] VITALS (21 sets, daily range): BP systolic 116–159; BP diastolic 62–104
[2022-11-21 05:49] LABS: INTERNATIONAL NORMALIZED RATIO 1.2 RATIO (0.7-1.3); PROTHROMBIN TIME 11.4 SECONDS (9.0-12.5)
[2022-11-21 05:50] LABS: BASO% 0.3 % (0-3); BUN 39 mg/dL (8-23); CARBON DIOXIDE 24 mmol/l (22-30); CHLORIDE 110 mmol/l (95-108); CREATININE 1.3 mg/dL (0.7-1.3); EOS% 0.2 % (0-8); GFR FOR AFR.AMER. > 60 ML/MIN (>=60 (CALC)); GFR OTHER RACES 53 ML/MIN (>=60 (CALC)); HEMATOCRIT 33.1 % (39.0-50.0); HEMOGLOBIN 10.8 g/dl (14.0-18.0); IMMATURE GRANULOCYTES 0.2 % (0.0-5.0); MAGNESIUM 1.5 mg/dL (1.6-2.3); MEAN CELL VOLUME 97.1 fL CALC (80.0-100.0); MEAN CORPUSCULAR HGB 31.7 pG CALC (26.0-32.0); MEAN CORPUSCULAR HGB CONC 32.6 g/dL CAL (32.0-36.0); NEUT# 5.39 thou/uL (1.82-7.42); NEUT% 90.3 % (42-76); POTASSIUM 4.5 mmol/l (3.5-5.1); RED BLOOD COUNT 3.41 mill/uL (4.70-6.10); RED CELL DISTRI WIDTH 12.7 % (11.5-15.5); SODIUM 140 mmol/l (137-146)
[2022-11-22 00:22] VITALS: BP 122/53
[2022-11-22 04:45] VITALS: BP 140/105
[2022-11-22 05:23] LABS: BASO% 0.3 % (0-3); EOS% 0.3 % (0-8); HEMATOCRIT 32.2 % (39.0-50.0); HEMOGLOBIN 10.6 g/dl (14.0-18.0); IMMATURE GRANULOCYTES 0.7 % (0.0-5.0); LYMPH% 4.2 % (15-41); MEAN CELL VOLUME 95.3 fL CALC (80.0-100.0); MEAN CORPUSCULAR HGB 31.4 pG CALC (26.0-32.0); MEAN CORPUSCULAR HGB CONC 32.9 g/dL CAL (32.0-36.0); MONO% 5.4 % (2-13); NEUT# 6.16 thou/uL (1.82-7.42); NEUT% 89.1 % (42-76); RED BLOOD COUNT 3.38 mill/uL (4.70-6.10); RED CELL DISTRI WIDTH 12.7 % (11.5-15.5)
[2022-11-22 05:39] LABS: ALBUMIN 2.9 g/dL (3.2-5.0); BUN 34 mg/dL (8-23); CARBON DIOXIDE 24 mmol/l (22-30); CHLORIDE 110 mmol/l (95-108); CREATININE 1.2 mg/dL (0.7-1.3); GFR FOR AFR.AMER. > 60 ML/MIN (>=60 (CALC)); GFR OTHER RACES 59 ML/MIN (>=60 (CALC)); MAGNESIUM 1.4 mg/dL (1.6-2.3); POTASSIUM 4.3 mmol/l (3.5-5.1); SODIUM 139 mmol/l (137-146)
[2022-11-22 06:47] VITALS: BP 121/58
[2022-11-22 10:11] VITALS: BP 122/77
[2022-11-22] MEDS ORDERED: OXYCODO-APAP1 TA2 PO (11:22)
[2022-11-22] MEDS ORDERED: WARFARIN SODIUM5 MG PO (11:22)
[2022-11-22] MEDS ORDERED: CARDIZEM CD120 MG PO (11:22)
[2022-11-22] MEDS ORDERED: PREGABALIN75 MG PO (11:22)
[2022-11-22] MEDS ORDERED: ALPRAZOLAM0.5 MG PO (11:22)
[2022-11-22 11:28] LABS: INTERNATIONAL NORMALIZED RATIO 1.5 RATIO (0.7-1.3); PROTHROMBIN TIME 14.3 SECONDS (9.0-12.5)
[2022-11-22] MEDS ORDERED: MEDDOSEPAK PO (11:33)
== END 2022-11-22 15:47 | DRG 177 ==
LOC: ED 20:41 → ED-I 11-09 00:05 → ED 11-09 00:26 → MS2 11-09 00:27 → ICU 11-09 00:27 → MS2 11-09 20:40 → ICU 11-18 22:35 → MS2 11-21 18:00
PROVIDERS: Emergency Medicine; Internal Medicine; Internal Medicine Nephrology; Nurse Practitioner Family; ADMIT Internal Medicine; ATTEND Internal Medicine
PROC: 0T9B70Z Drainage of Bladder with Drainage Device, Via Natural or Artificial Opening (ICD-10-PCS; principal; 2022-11-08)
DX: U07.1 COVID-19 (principal); G93.41 Metabolic encephalopathy; J12.82 Pneumonia due to coronavirus disease 2019; J96.01 Acute respiratory failure with hypoxia; N17.9 Acute kidney failure, unspecified; E87.1 Hypo-osmolality and hyponatremia; E87.20 Acidosis, unspecified; N13.30 Unspecified hydronephrosis; E87.5 Hyperkalemia; I95.9 Hypotension, unspecified; E83.39 Other disorders of phosphorus metabolism; I48.0 Paroxysmal atrial fibrillation; E86.9 Volume depletion, unspecified; D69.6 Thrombocytopenia, unspecified; I10 Essential (primary) hypertension; M17.0 Bilateral primary osteoarthritis of knee; R60.0 Localized edema; M10.00 Idiopathic gout, unspecified site; G40.909 Epilepsy, unspecified, not intractable, without status epilepticus; F41.9 Anxiety disorder, unspecified; R74.8 Abnormal levels of other serum enzymes; F95.9 Tic disorder, unspecified; Z85.46 Personal history of malignant neoplasm of prostate; Z87.891 Personal history of nicotine dependence
CPT/HCPCS: J1644; J1650; J2060; J3475; S0166

== ENCOUNTER 2023-09-19 04:24 | Emergency (ER) | payer MEDICARE ==
[2023-09-19] VITALS (8 sets, daily range): BP systolic 109–130; BP diastolic 63–92
[~2023-09-19] VITALS: Ht 172.7 cm; Wt 90.9 kg
[~2023-09-19 04:24] MED LIST changes: +ASPIRIN81 MG PO; +CARDIZEM CD120 MG PO; +DICLOFENAC SODIUM1 % TD; +DOK100 MG PO; +OMEPRAZOLE20 MG PO; +PAXLOVID PO; +PHENYTOIN EX100 M1 PO; +PROMETHAZINE/COD1 ML PO; +WARFARIN SODIUM5 MG PO
[2023-09-19] MEDS ORDERED: XANAX0.5 MG PO (04:52)
[2023-09-19] MEDS ORDERED: OXYCODO-APAP1 TA2 PO (04:53)
[2023-09-19 06:25] LABS: ANION GAP 9 (6-22 (CALC)); BUN 22 mg/dL (8-23); BUN/CREATININE RATIO 26 (12-20 (CALC)); CARBON DIOXIDE 24 mmol/l (22-30); CHLORIDE 109 mmol/l (95-108); CREATININE 0.8 mg/dL (0.7-1.3); GFR FOR AFR.AMER. > 60 ML/MIN (>=60 (CALC)); GFR OTHER RACES > 60 ML/MIN (>=60 (CALC)); SODIUM 138 mmol/l (137-146)
[2023-09-19] MEDS ORDERED: INDOMETHACIN75 MG PO (06:42)
== END 2023-09-19 06:53 | disposition home or self-care (01) ==
LOC: ED 04:24
PROVIDERS: Family Medicine
DX: M77.8 Other enthesopathies, not elsewhere classified (principal); G40.909 Epilepsy, unspecified, not intractable, without status epilepticus

== ENCOUNTER 2024-09-06 15:47 | Inpatient (IN) | payer MEDICARE ==
[2024-09-06] VITALS (12 sets, daily range): BP systolic 80–131; BP diastolic 31–90
[~2024-09-06] VITALS: Ht 172.7 cm; Wt 88.4 kg
[~2024-09-06 15:47] MED LIST changes: +ATIVAN0.5 MG PO; +CARDIZEM CD240 MG PO; +DIGOXIN0.125 MG PO; +INDOMETHACIN75 MG PO; +METOPROLOL TAR100 MG PO; +TAMSULOSIN0.4 MG PO; +XANAX0.5 MG PO
--- NOTE | 2024-09-06 15:47 | NUR ---
PATIENT BROUGHT IN VIA EMS DUE TO HAVING INCREASE IN ALTERED MENTAL STATUS AND BEING COMBATIVE.
[2024-09-06] MEDS ORDERED: MIDAZOLAM HCL 2 MG/2 ML VIAL IV ONE ×2 (16:00→17:35)
[2024-09-06 16:22] LABS: BASO% 0.6 % (0-3); EOS% 1.3 % (0-8); HEMATOCRIT 41.5 % (39.0-50.0); HEMOGLOBIN 13.9 g/dl (14.0-18.0); IMMATURE GRANULOCYTES 0.1 % (0.0-5.0); LYMPH% 7.3 % (15-41); MEAN CELL VOLUME 98.1 fL CALC (80.0-100.0); MEAN CORPUSCULAR HGB 32.9 pG CALC (26.0-32.0); MEAN CORPUSCULAR HGB CONC 33.5 g/dL CAL (32.0-36.0); MONO% 6.6 % (2-13); NEUT# 5.89 thou/uL (1.82-7.42); NEUT% 84.1 % (42-76); RED BLOOD COUNT 4.23 mill/uL (4.70-6.10); RED CELL DISTRI WIDTH 13.8 % (11.5-15.5)
[2024-09-06 16:25] LABS: URINE BILIRUBIN - DIPSTICK Negative (NEGATIVE); URINE BLOOD DIPSTICK Negative (NEGATIVE); URINE COLOR Yellow; URINE GLUCOSE - DIPSTICK Negative (NEGATIVE); URINE KETONE Negative (NEGATIVE); URINE LEUK ESTERASE Negative (NEGATIVE); URINE NITRITE - DIPSTICK Negative (Negative); URINE PH 5.5 (4.5-8.0); URINE PROTEIN - DIPSTICK Negative (NEG-TRACE); URINE UROBILINOGEN - DIPSTICK 0.2 E.U./dL (0.2)
[2024-09-06 16:36] LABS: ALBUMIN 4.3 g/dL (3.2-5.0); BILIRUBIN, TOTAL 0.7 mg/dL (0.2-1.3); CREATININE 0.9 mg/dL (0.7-1.3); POTASSIUM 4.8 mmol/l (3.5-5.1); TOTAL PROTEIN 6.8 g/dL (6.3-8.2)
[2024-09-06] MEDS ORDERED: HALOPERIDOL LACTATE 5 MG/ML SDV IM ONE (16:40)
[2024-09-06] MEDS ORDERED: METOPROLOL100 M1 PO (17:59)
[2024-09-06] MEDS ORDERED: METOPROLOL TAR100 MG PO (18:09)
[2024-09-06] MEDS ORDERED: PLAVIX75 MG PO (18:13)
[2024-09-06] MEDS ORDERED: DIGOXIN0.125 MG PO (18:15)
[2024-09-06] MEDS ORDERED: TIADYLT ER240 MG PO (18:16)
[2024-09-06] MEDS ORDERED: BAYER ASPIRIN E81 MG PO (18:17)
[2024-09-06] MEDS ORDERED: VITAMIN B-12250 MCG PO (18:18)
--- NOTE | 2024-09-06 18:20 | NUR ---
NURSE TO CT WITH MONITORED PATIENT
--- NOTE | 2024-09-06 18:36 | NUR ---
AND DAUGHTER REMAIN BEDSIDE WITH PATIENT, DENY AND NEEDS CURRENTLY
--- NOTE | 2024-09-06 19:05 | NUR ---
REPORT RECEIVED FROM TERESA RANGEL AND CARE RESUMED BY THIS NURSE. CALL LIGHT WITHIN REACH AND PT AWAITING RESULTS. AT BEDSIDE.
--- NOTE | 2024-09-06 19:06 | NUR ---
TRANSITION OF CARE REPORT TO AMY GAMA
[2024-09-06] MEDS ORDERED: SODIUM CHLORIDE 0.9% 1,000 ML IV ONE (19:25)
[2024-09-06] MEDS ORDERED: SODIUM CHLORIDE 0.9% 1,000 ML IV PRN (19:55)
[2024-09-06] MEDS ORDERED: MAGNESIUM HYDROXIDE 30 ML UDC PO PRN (19:55)
[2024-09-06] MEDS ORDERED: ACETAMINOPHEN 325 MG/TAB PO PRN (19:55)
[2024-09-06] MEDS ORDERED: oxyCODONE 10MG/APAP 325 MG 1 COMBO TAB PO PRN (20:00)
[2024-09-06] MEDS ORDERED: LORazepam 0.5 MG/TAB PO PRN (20:00)
--- NOTE | 2024-09-06 20:04 | NUR ---
PT RESTING IN RM AWAITING ADMISSION AT THIS TIME IN NO APPARENT DISTRESS. CALL LIGHT WITHIN REACH AND PT AWAITING RM ASSIGNMENT.
[2024-09-06] MEDS ORDERED: DIGOXIN 0.125 MG/TAB PO SCH (20:05)
[2024-09-06] MEDS ORDERED: METOPROLOL TARTRATE 50 MG/TAB PO SCH (21:00)
[2024-09-06] MEDS ORDERED: TAMSULOSIN HCL 0.4 MG CAP PO SCH (21:00)
[2024-09-06] MEDS ORDERED: PRIMIDONE PO SCH (21:00)
[2024-09-06] MEDS ORDERED: ENOXAPARIN SODIUM 40 MG/0.4 ML SYR SC SCH (21:00)
--- NOTE | 2024-09-06 21:10 | NUR ---
REPORT GIVEN TO TERESA PELLETIER ON MED SURG AND [facility] CALL LIGHT WITHIN REACH AND PT HAS NO NEEDS OR CONCERNS.
[2024-09-06] MEDS ORDERED: LORazepam 2 MG/ML IM ONE (21:25)
[2024-09-06] MEDS ORDERED: DiphenhydrAMINE HCL 50 MG/ML SDV IM ONE (21:25)
--- NOTE | 2024-09-06 21:30 | NUR ---
PT PULLED IV OUT OF ARM AND ATTEMPTING TO GET OUT OF BED WHILE FIGHTING STAFF AND . VERBAL ORDERS GIVEN TO TERESA JUÁREZ BY EDP FOR ATIVAN AND BENADRYL IM. MEDS GIVEN.
--- NOTE | 2024-09-06 21:45 | NUR ---
NEW IV SITE OBTAINED AND NURSES ASKED EDP FOR MORE MEDICATION TO RELAX PT AT THIS TIME. EDP ADVISED THAT HE WANTS TO WAIT AND SEE IF THE PREVIOUS MEDS WORK. NURSES ADVISED THAT THE PT IS STILL FIGHTING HARD IF WE COULD HAVE SOMETHING IV LIKE THE VERSED THAT THE PT WAS GIVEN DURING PREVIOUS SHIFT THAT SEEMED TO WORK. EDP GAVE ANOTHER DOSE OF BENADRYL IV VERBAL ORDER TO TERESA JUÁREZ. MED GIVEN. NO CHANGES NOTED AFTER 15 MINUTES. PT CONTINUES TO FIGHT STAFF AND ATTEMPTING TO GET UP AND RIP IV OUT.
[2024-09-06] MEDS ORDERED: DiphenhydrAMINE HCL 50 MG/ML SDV ONE (21:49)
[2024-09-06] MEDS ORDERED: MIDAZOLAM HCL 2 MG/2 ML VIAL ONE (22:11)
--- NOTE | 2024-09-06 22:13 | NUR ---
EDP ADVISED AGAIN THAT THE PT IS STILL FIGHTING BY NURSING STAFF AND VERBAL ORDERS GIVEN FOR VERSED IV TO TERESA JUÁREZ. MED GIVEN AT THIS TIME. PT TO BE TAKEN TO MED SURG RM 274 SHORTLY.
--- NOTE | 2024-09-06 22:55 | NUR ---
PT TRANSPORTED TO MED SURG RM 274 AT THIS TIME WITH 2 [employer]S AND TERESA JUÁREZ AT THIS TIME.
[2024-09-06] MEDS ORDERED: DiphenhydrAMINE HCL 50 MG/ML SDV IV PRN (23:10)
--- NOTE | 2024-09-07 | NUR ---
PATIENT ARRIVED TO THE UNIT AT 2357 ACCOMPAINED BY ER NURSE, SECURITY AND . PATIENT ALERT, COMBATIVE AND CONFUSED. PATIENT NOTED TO STRIKE OUT AT [facility], PM PECAN GATHERER. PELON JEAN BAPTISTE, UPDATED ON SITUATION AGREED TO IMPLEMENT RESTRAINTS AND ORDER RECEIVED FOR ZYPREXA. ORIENTED TO ROOM. ASSESSMENT COMPLETED (SEE INTERVENTIONS), PUREWICK PLACED AND PATIENT GIVEN CALL ADAMS. ADDITIONAL SAFETY MEASURES INCLUDE SITTER AT BEDSIDE, BED LOCKED AND IN LOW POSITION. WILL CONTINUE TO MONITOR RESTRAINT USAGE AND PLAN OF CARE.
--- NOTE | 2024-09-07 00:05 | NUR ---
PATIENT'S AT BEDSIDE. PATIENT NOTED TO BE TRYING TO CLIMB OUT OF BED. REQUESTED THAT ALL 4 RAILS ARE KEPT UP FOR PATIENT. ADVISED THAT THAT IS AN ADDITIONAL RESTRAINT, VERBALIZED UNDERSTANDING. REQUESTED THAT THEY ALL BE USED FOR "HIS AND YOUR SAFETY". WILL CONTINUE TO MONITOR NEED FOR RAILS/RESTRAINTS.
[2024-09-07 03:39] VITALS: BP 134/83
--- NOTE | 2024-09-07 04:07 | NUR ---
PATIENT RESTLESS/AGITATED IN BED. RESTRAINTS REMOVED FOR ROM AND NURSING CARE. PATIENT CONTINUES TO ATTEMPT TO GET OUT OF BED, ALL 4 BED RAILS UP REQUESTED BY SPOUSE. RESTRAINTS REAPPLIED. NO ADDITIONAL CONCERNS AT THIS TIME. WILL CONTINUE WITH PLAN OF CARE
--- NOTE | 2024-09-07 07:15 | NUR ---
RECEIVED PT IN ROOM IN RESTRAINTS AND VERY AGITATED. PT AWAKE AND CONFUSED AT THIS TIME. PT ORIENTED X1. PT AND 1:1 SITTER @ BEDSIDE. PT HAS NS INFUSING @ 100 ML/HR WITHOUT ANY DIFFICULTY. PT NOT FOLLOWING ANY COMMANDS.
[2024-09-07 08:36] LABS: BASO% 0.5 % (0-3); EOS% 1.8 % (0-8); HEMATOCRIT 43.8 % (39.0-50.0); HEMOGLOBIN 14.7 g/dl (14.0-18.0); IMMATURE GRANULOCYTES 0.8 % (0.0-5.0); LYMPH% 7.9 % (15-41); MEAN CELL VOLUME 97.3 fL CALC (80.0-100.0); MEAN CORPUSCULAR HGB 32.7 pG CALC (26.0-32.0); MEAN CORPUSCULAR HGB CONC 33.6 g/dL CAL (32.0-36.0); MONO% 9.1 % (2-13); NEUT# 8.04 thou/uL (1.82-7.42); NEUT% 79.9 % (42-76); RED BLOOD COUNT 4.5 mill/uL (4.70-6.10); RED CELL DISTRI WIDTH 13.9 % (11.5-15.5)
--- NOTE | 2024-09-07 08:45 | NUR ---
PT REMAINS IN RESTRAINTS AT THIS TIME AND 1:1 SITTER @ BEDSIDE. PT ATTEMPTING TO FEED HIM. PT EATING ABOUT 25% OF BREAKFAST. PT CONTINUE TO KICK AND CRY OUT INAPROPRIATE WORDS. SAFETY AND COMFORT MEASURES PROVIDED.
[2024-09-07 08:46] LABS: BILIRUBIN, TOTAL 0.6 mg/dL (0.2-1.3); CREATININE 0.8 mg/dL (0.7-1.3); MAGNESIUM 1.8 mg/dL (1.6-2.3); TOTAL PROTEIN 6.5 g/dL (6.3-8.2)
[2024-09-07] MEDS ORDERED: PHENYTOIN EXTENDED 100 MG/CAP PO SCH ×2 (09:00→12:00)
[2024-09-07] MEDS ORDERED: CLOPIDOGREL BISULFATE 75 MG/TAB TAB PO SCH (09:00)
[2024-09-07] MEDS ORDERED: dilTIAZem HCl COATED BEADS 240 MG/CAP PO SCH (09:00)
[2024-09-07] MEDS ORDERED: ASPIRIN EC 81 MG/TAB PO SCH (09:00)
[2024-09-07 10:46] VITALS: BP 128/70
[2024-09-07] MEDS ORDERED: DONEPEZIL HCL 5 MG/TAB PO SCH (12:00)
[2024-09-07] MEDS ORDERED: QUEtiapine FUMERATE 25 MG/TAB PO SCH (12:00)
--- NOTE | 2024-09-07 12:00 | NUR ---
NO CHANGE IN PT STATUS FROM PREVIOUS ASSESSMENT. CONTINUE TO MONITOR PT FOR ANY CHANGES.
--- NOTE | 2024-09-07 14:00 | NUR ---
PT STABLE AT THIS TIME AND SITTING UP IN BED WITH AND 1:1 SITTER AT BEDSIDE. RESTRAINTS RELEASED AT THIS TIME. PT CALM. PT AWAKE AND ORIENTED X1 AND ABLE TO FOLLOW VERY SIMLPLE COMMANDS.CONTINUE TO MONITOR PT.
--- NOTE | 2024-09-07 15:20 | NUR ---
PT PULLING ON PUREWICK AND UNABLE TO BE REDIRECTED. 1:1 SITTER @ BEDSIDE ALONG WITH . PT AGITAED. SAFETY PRECAUTIONS AND COMFORT MEASURES MAINTAINED. PT PLACED BACK ON RESTRAINTS AND REASSURANCE PROVIDED.
[2024-09-07 16:37] VITALS: BP 169/64
--- NOTE | 2024-09-07 17:09 | NUR ---
PT CALM AT THIS TIME AND TALKING WITH . PT NO ACUTE DISTRESS NOTED ON ASSESSMENT. CONTINUE TO MONITOR PT.MONITOPR PT FOR ANY CHANGES.
--- NOTE | 2024-09-07 18:12 | NUR ---
NO CHANGE IN PT STATUS FROM PREVIOUS ASSESSMENT. 1:1 SITTER AT BEDSIDE ALONG WITH . NO ACUTE DISTRESS NOTED.
[2024-09-07 20:13] VITALS: BP 150/83
--- NOTE | 2024-09-07 20:20 | NUR ---
PATIENT LYING IN BED CALM AND PLEASANT. SITTER AT BEDSIDE. PATIENT ALERT AND ORIENTED TO SELF ONLY. LUNGS CLEAR/DIMINISHED TO ASCULTATION. BREATHING EVEN AND UNLABORED ON ROOM AIR. DENIES PAIN AT THIS TIME. PATIENT GIVEN MEDICATIONS, TAKEN WITH PUDDING. PUREWICK PATENT AND TO SUCTION WITH 100 mL OF CLEAR, YELLOW URINE NOTED. SAFETY MEASURES IN PLACE INCLUDING SITTER AT BEDSIDE, BED IN LOW POSITION AND CALL LIGHT RESTING NEXT TO L HAND. NO APPARENT DISTRESS AT THIS TIME. WILL CONTINUE WITH PLAN OF CARE.
--- NOTE | 2024-09-07 23:56 | NUR ---
PATIENT LYING IN BED RESTING. SITTER AT BEDSIDE. PATIENT IN SOFT WRIST RESTRAINTS, REMOVED FOR ROM AND REPOSITIONING. NO ADDITIONAL CONCERNS AT THIS TIME. WILL CONTINUE WITH PLAN OF CARE.
[2024-09-08] VITALS (7 sets, daily range): BP systolic 141–158; BP diastolic 73–97
--- NOTE | 2024-09-08 03:48 | NUR ---
PATIENT LYING IN BED. SITTER AT BEDSIDE. NO APPARENT DISTRESS NOTED. WILL CONTINUE WITH PLAN OF CARE.
[2024-09-08 06:10] LABS: BASO% 0.6 % (0-3); EOS% 2.2 % (0-8); HEMATOCRIT 43.3 % (39.0-50.0); HEMOGLOBIN 14.6 g/dl (14.0-18.0); IMMATURE GRANULOCYTES 0.2 % (0.0-5.0); LYMPH% 6.5 % (15-41); MEAN CELL VOLUME 97.5 fL CALC (80.0-100.0); MEAN CORPUSCULAR HGB 32.9 pG CALC (26.0-32.0); MEAN CORPUSCULAR HGB CONC 33.7 g/dL CAL (32.0-36.0); MONO% 9.3 % (2-13); NEUT# 7.13 thou/uL (1.82-7.42); NEUT% 81.2 % (42-76); RED BLOOD COUNT 4.44 mill/uL (4.70-6.10); RED CELL DISTRI WIDTH 13.8 % (11.5-15.5)
[2024-09-08 06:21] LABS: ALBUMIN 3.7 g/dL (3.2-5.0); BILIRUBIN, TOTAL 0.8 mg/dL (0.2-1.3); CREATININE 0.7 mg/dL (0.7-1.3); MAGNESIUM 1.8 mg/dL (1.6-2.3); POTASSIUM 3.8 mmol/l (3.5-5.1); TOTAL PROTEIN 6.3 g/dL (6.3-8.2)
--- NOTE | 2024-09-08 07:21 | NUR ---
PATIENT LAYING IN BED. SITTER AT BEDSIDE. NO S/SX OF PAIN OR DISTRESS NOTED AT THIS TIME.
--- NOTE | 2024-09-08 11:58 | NUR ---
PATIENT SITTING UP IN BED, IS FEEDING HIM LUNCH. SITTER AT BEDSIDE.
[2024-09-08] MEDS ORDERED: BISACODYL 10 MG SUPP RE PRN (12:55)
--- NOTE | 2024-09-08 15:58 | NUR ---
PATIENT LAYING IN BED. SITTER AND SPOUSE AT BEDSIDE. NO S/SX OF PAIN OR DISTRESS NOTED.
--- NOTE | 2024-09-08 20:00 | NUR ---
PATIENT LYING IN BED. DROWSY AND ORIENTED TO PERSON ONLY. ASSESSMENT COMPLETED. LUNGS CLEAR/DIMINISHED TO ASCULTATION. BREATHING EVEN AND UNLABORED ON ROOM AIR. DENIES PAIN AT THIS TIME. SITTER/ AT BEDSIDE. NO APPARENT DISTRESS NOTED. SAFETY MEASURES IN PLACE INCLUDING BED LOCKED AND IN LOW POSITION. WILL CONTINUE WITH PLAN OF CARE.
[2024-09-09] VITALS (8 sets, daily range): BP systolic 128–152; BP diastolic 69–87
--- NOTE | 2024-09-09 | NUR ---
PATIENT APPEARS TO BE RESTING WITH EYES CLOSED. SITTER AT BEDSIDE. NO APPARENT DISTRESS NOTED. WILL CONTINUE WITH PLAN OF CARE.
--- NOTE | 2024-09-09 04:00 | NUR ---
PATIENT APPEARS TO BE RESTING WITH EYES CLOSED. SITTER AT BEDSIDE. NO APPARENT DISTRESS NOTED. WILL CONTINUE WITH PLAN OF CARE.
[2024-09-09 05:48] LABS: BASO% 0.1 % (0-3); HEMATOCRIT 42.9 % (39.0-50.0); HEMOGLOBIN 14.4 g/dl (14.0-18.0); IMMATURE GRANULOCYTES 0.3 % (0.0-5.0); LYMPH% 2.4 % (15-41); MEAN CELL VOLUME 97.3 fL CALC (80.0-100.0); MEAN CORPUSCULAR HGB 32.7 pG CALC (26.0-32.0); MEAN CORPUSCULAR HGB CONC 33.6 g/dL CAL (32.0-36.0); MONO% 8.5 % (2-13); NEUT# 13.6 thou/uL (1.82-7.42); NEUT% 88.7 % (42-76); RED BLOOD COUNT 4.41 mill/uL (4.70-6.10); RED CELL DISTRI WIDTH 14.1 % (11.5-15.5)
[2024-09-09 05:59] LABS: ALBUMIN 3.5 g/dL (3.2-5.0); BILIRUBIN, TOTAL 0.9 mg/dL (0.2-1.3); CREATININE 0.8 mg/dL (0.7-1.3); MAGNESIUM 1.7 mg/dL (1.6-2.3); POTASSIUM 3.3 mmol/l (3.5-5.1); TOTAL PROTEIN 6.1 g/dL (6.3-8.2)
--- NOTE | 2024-09-09 08:00 | NUR ---
PATIENT LAYING IN BED. SITTER AND FAMILY AT BEDSIDE. PATIENT IS CLEAN AND DRY AND REPOSITION TO RIGHT SIDE. NO S/SX OF PAIN OR DISTRESS NOTED AT THIS TIME.
[2024-09-09] MEDS ORDERED: DEXTROSE IN LACTATED RINGERS 1,000 ML IV PRN (09:35)
[2024-09-09] MEDS ORDERED: CEFEPIME HYDROCHLORIDE 2 GM in SODIUM CHLORIDE 0.9% 100 ML IV SCH (10:30)
[2024-09-09] MEDS ORDERED: VANCOMYCIN HCL 1 GM in SODIUM CHLORIDE 0.9% 250 ML IV SCH (11:00)
--- NOTE | 2024-09-09 11:39 | NUR ---
PATIENT LAYING IN BED. SITTER AND SPOUSE AT BEDSIDE. NO S/SX OF PAIN OR DISTRESS NOTED.
--- NOTE | 2024-09-09 15:52 | NUR ---
PATIENT LAYING IN BED. SITTER AND SPOUSE AT BEDSIDE. PATIENT HAS A TEMP OF 101 AND MEDS GIVEN PER OCT.
--- NOTE | 2024-09-09 20:18 | NUR ---
PATIENT LYING IN BED. PATIENT ALERT AND ORIENTED TO PERSON ONLY, SITTER AT BEDSIDE. ASSESSMENT COMPLETED. LUNGS CLEAR/DIMINISHED TO ASCULTATION. BREATHING EVEN AND UNLABORED ON ROOM AIR. PATIENT SWALLOWED MEDICATIONS PLACED IN JELLO WITH MINIMAL DIFFICULTY. STRONG PERIPHERAL/PEDAL PULSES. PUREWICK PATENT TO SUCTION WITH 300 mL OF DARK YELLOW URINE NOTED. SAFETY MEASURES IN PLACE INCLUDING BED LOCKED AND IN LOW POSITION, SITTER AT BEDSIDE AND CALL LIGHT RESTING NEXT TO R HANDS. B/L WRIST RESTRAINTS REMOVED FOR ROM AND REPOSITIONING.
[2024-09-10] VITALS (8 sets, daily range): BP systolic 108–136; BP diastolic 60–82
--- NOTE | 2024-09-10 00:10 | NUR ---
PATIENT LYING IN BED RESTING. SITTER AT BEDSIDE. NO APPARENT DISTRESS NOTED. WILL CONTINUE WITH PLAN OF CARE
--- NOTE | 2024-09-10 04:00 | NUR ---
PATIENT APPEARS TO BE RESTING WITH EYES CLOSED. SITTER AT BEDSIDE. NO APPARENT DISTRESS NOTED. WILL CONTINUE WITH PLAN OF CARE
[2024-09-10 05:56] LABS: BASO% 0.1 % (0-3); EOS% 0.1 % (0-8); HEMATOCRIT 39.5 % (39.0-50.0); HEMOGLOBIN 13.2 g/dl (14.0-18.0); IMMATURE GRANULOCYTES 1.1 % (0.0-5.0); LYMPH% 3.2 % (15-41); MEAN CELL VOLUME 97.5 fL CALC (80.0-100.0); MEAN CORPUSCULAR HGB 32.6 pG CALC (26.0-32.0); MEAN CORPUSCULAR HGB CONC 33.4 g/dL CAL (32.0-36.0); NEUT% 86.5 % (42-76); RED BLOOD COUNT 4.05 mill/uL (4.70-6.10); RED CELL DISTRI WIDTH 14.2 % (11.5-15.5)
[2024-09-10 06:25] LABS: ALBUMIN 2.8 g/dL (3.2-5.0); BILIRUBIN, TOTAL 1.1 mg/dL (0.2-1.3); CREATININE 0.8 mg/dL (0.7-1.3); MAGNESIUM 1.9 mg/dL (1.6-2.3); POTASSIUM 3.3 mmol/l (3.5-5.1); TOTAL PROTEIN 5.4 g/dL (6.3-8.2)
--- NOTE | 2024-09-10 08:00 | NUR ---
REPORT RECEIVED FROM NIGHT NURSE. PT IS ASLEEP IN BED. AWOKEN FOR ASSESSMENT. PT IS DIFFICULT TO AROUSE. MUMBLES BUT DOES NOT ANSWER QUESTIONS APPROPRIATELY. PT WAS PREVIOUSLY IN RESTRAINTS BUT ARE REMOVED AT THIS TIME PT COOPERATING AND NON-COMBATIVE. PT DOES NOT ANSWER ORIENTATION QUESTIONS. LUNGS DIMINISHED. PT IS ON RA. AFIB ON MONITOR. BS ACTIIVE. SITTER AT BEDSIDE.
--- NOTE | 2024-09-10 08:30 | NUR ---
ATTEMPTED TO GIVE PT MEDS IN JELLO, NIGHT NURSE SUGGESTED. PT WAS ABLE TO TOLERATE MOST OF MEDS BEFORE STARTING TO SPIT THEM OUT. ASSISTED SENIOR RELIABILITY ENGINEER TO TURN AND CLEAN PT.
[2024-09-10] MEDS ORDERED: POTASSIUM CHLORIDE 20 MEQ/PKT POWDER PO SCH (09:00)
--- NOTE | 2024-09-10 11:45 | NUR ---
1145- report received from Lia Hair RN 1240- report given to Laisha Hair RN; pt in bed with sitter present; spouse at bedside; pt in stable condition
--- NOTE | 2024-09-10 13:00 | NUR ---
ASSESSMENT COMPLETED. PT IS ALERT TO SELF, WAS ABLE TO TAKE MEDICATION IN JELLO. PT TOOK ONE SIP OF TEA, WAS UNINTERESTED. SKIN IS INTACT, BRUISING NOTED TO L SIDE OF ABD. PT COMPLAINS OF PAIN WHEN REPOSITIONING AND DOING PROM. LUNGS CLEAR/DIMINISHED. IS VERY CONCERNED, SHE WANTS PT TO GET STRENGTH AND COME BACK HOME TO "LIVE A NORMAL LIFE." EDUCATED ON SEVERITY OF SITUATION. STATED "HE HAD 10 FALLS SINCE LAST HOSPITAL ADMISSION." EDUCATED THAT IT IS UNSAFE FOR HER OR PT THEMSELF TO CARE FOR HIM DAILY.
--- NOTE | 2024-09-10 16:21 | NUR ---
S: GURU BONDS is a 79 M who presents with leukocytosis, fever O: VS: BP 127/67 mmhg, P 99 bpm, RR20 bpm,T 100.2F W <88kg>, HT<68in>, Scr=<0.8mg/dl>,CrCl= <63.5ml/min> A: Blood culture is pending. Urine culture is pending. P: Patient is on cefepime 2gm iv q12h. Vancomycin ordered for pharmacy to dose. Start Vancomycin 1gm IV Q12H. Vancomycin trough is drawn before the 4th dose on 09/10/24 @2030 Vancomycin goal trough is between <10-20 mcg/ml>. Pharmacy will follow and or advise on antibiotics use as needed.
--- NOTE | 2024-09-10 17:00 | NUR ---
NO CHANGES NOTED. IS @ BEDSIDE, EDUCATED ON ASPIRATION RISK. SHE IS ADAMANT ABOUT GIVING THICKEN FLUIDS OR ENSURE, AGAIN EDUCATED ON RISK FOR ASPIRATION.
--- NOTE | 2024-09-10 19:30 | NUR ---
FAMILY IN PT'S ROOM. SITTER AT BEDSIDE. NO SIGNS OF ANY DISTRESS. BREATHING IS EVEN AND UNLABORED.
--- NOTE | 2024-09-10 20:00 | NUR ---
PT RESTING ON BED WITH THE HEAD OF THE BED SLIGHTLY ELEVATED. BREATHING IS EVEN AND UNLABORED. NO SIGNS OF DISTRESS NOTED. LUNGUS CLEAR IN UPPER LOBES-DIMINISHED IN LOWER LOBES. TELE MONITOR IN PLACE RUNNING A-FIB- 93 AT THIS TIME. IV FLUIDS D5 LR INFUSING AT 75 CC/HR. SITTER AT BEDSIDE. BED IN LOWEST POSITION, CALL LIGHT IN REACH AND SAFETY PRECAUTIONS IN PLACE.
[2024-09-11] VITALS (7 sets, daily range): BP systolic 115–143; BP diastolic 56–102
--- NOTE | 2024-09-11 | NUR ---
PT RESTING IN BED WITH EYES CLOSED WITH THE HEAD OF THE BED ELEVATED. BREATHING IS EVEN AND UNLABORED. TELE MONITOR IN PLACE ORDRED. SITTER AT BEDSIDE. CALL LIGHT IN REACH AND SAFETY PRECAUTIONS IN PLACE
[2024-09-11 03:58] LABS: ALBUMIN 2.5 g/dL (3.2-5.0); BILIRUBIN, TOTAL 0.8 mg/dL (0.2-1.3); CREATININE 0.8 mg/dL (0.7-1.3); MAGNESIUM 1.9 mg/dL (1.6-2.3); POTASSIUM 3.3 mmol/l (3.5-5.1); TOTAL PROTEIN 4.9 g/dL (6.3-8.2)
--- NOTE | 2024-09-11 04:00 | NUR ---
PT RESTING IN BED. RESPS ARE EVEN AND UNLABORED. TELE MONITOR WITH LEAD INTACT WORKING WELL RUNNING A-FIB-94. CALL LIGHT IN REACH
[2024-09-11 04:14] LABS: BASO% 0.2 % (0-3); EOS% 0.1 % (0-8); HEMATOCRIT 35.6 % (39.0-50.0); IMMATURE GRANULOCYTES 0.4 % (0.0-5.0); LYMPH% 4.4 % (15-41); MEAN CELL VOLUME 97.8 fL CALC (80.0-100.0); MEAN CORPUSCULAR HGB CONC 33.7 g/dL CAL (32.0-36.0); MONO% 7.8 % (2-13); NEUT# 9.11 thou/uL (1.82-7.42); NEUT% 87.1 % (42-76); RED BLOOD COUNT 3.64 mill/uL (4.70-6.10); RED CELL DISTRI WIDTH 14.3 % (11.5-15.5)
--- NOTE | 2024-09-11 09:55 | NUR ---
S: GURU BONDS is a 79 M who presents with leukocytosis. O: VS: BP 142/76, P 96, RR 20,T 98.1 W 88.4, HT 68 in, Scr= 0.8,CrCl= 63.5 ml/min A: Blood and urine cultures are pending. P: Patient is on Vancomycin 1gm IV q12h and Cefepime 2gm IV q12h. Vancomycin ordered for pharmacy to dose. Vancomycin trough on 09/10/24 at 2030 was 10 mcg/ml (drawn 2 hours early). Increase Vancomycin to 1250 mg IV q12h. Vancomycin trough is drawn before the 4th dose on 09/12/24 2230. Vancomycin goal trough is between <15-20 mcg/ml>. Pharmacy will follow and or advise on antibiotics use as needed.
[2024-09-11] MEDS ORDERED: VANCOMYCIN HCL 1,250 MG in SODIUM CHLORIDE 0.9% 225 ML IV SCH (11:00)
--- NOTE | 2024-09-11 19:30 | NUR ---
PT RESTING WITH THE HEAD ELEVATED WITH BESIDE. PT SEEMS A LITTLE BIT BETTER TODAY BUT STILL CONFUSED. IS SHOWING HIM PICTURES OF HIM. RESPS ARE EVEN AND UNLABORED. NO DISTRESS NOTED AT THIS TIME. LUNGS CLEAR TO AUCULTATION, PUREWICK ON PLACE WORKING WELL. IV SITE FLUSHED WITH 5 CC NO SIGNS OF ANY ABNORMALITIES. BRUISE NOTED TO HIS RIGHT UPPER ARM DURING ASSESSMENT. SITTER AT BEDSIDE. TELE IN PLACE ORDERED WITH LEADS INTACT. CALL LIGHT IN REACH AND SAFETY PRECAUTIONS IN PLACE.
--- NOTE | 2024-09-12 | NUR ---
PT RESTING IN BED WITH EYES CLOSED AND THE HEAD OF THE BED SLIGHTLY ELEVATED. RESPS ARE EVEN AND UNLABORED, TELE MONITOR IN PLACE SHOWING A-FIB-97 AT THIS TETE. SITTER AT BEDSIDE. CALL LIGHT IN REACH AND SAFETY PRECAUTIONS IN PLACE.
[2024-09-12 00:08] VITALS: BP 145/85
--- NOTE | 2024-09-12 04:00 | NUR ---
PT RESTING ON BED. RESPS ARE EVEN AND UNLABORED. TELE MONITOR IN PLACE WORKING WELL RUNNING A-FIB-104 AT THIS TIME. SITTER REMAINS AT BEDSIDE. CALL LIGHT IN REACH
[2024-09-12 04:19] VITALS: BP 140/89
[2024-09-12 05:48] LABS: BASO% 0.4 % (0-3); EOS% 0.8 % (0-8); HEMATOCRIT 35.9 % (39.0-50.0); HEMOGLOBIN 12.2 g/dl (14.0-18.0); IMMATURE GRANULOCYTES 0.3 % (0.0-5.0); LYMPH% 4.9 % (15-41); MEAN CELL VOLUME 97.8 fL CALC (80.0-100.0); MEAN CORPUSCULAR HGB 33.2 pG CALC (26.0-32.0); MONO% 6.7 % (2-13); NEUT# 6.2 thou/uL (1.82-7.42); NEUT% 86.9 % (42-76); RED BLOOD COUNT 3.67 mill/uL (4.70-6.10); RED CELL DISTRI WIDTH 13.9 % (11.5-15.5)
[2024-09-12 06:13] LABS: ALBUMIN 2.4 g/dL (3.2-5.0); BILIRUBIN, TOTAL 0.6 mg/dL (0.2-1.3); CREATININE 0.7 mg/dL (0.7-1.3); MAGNESIUM 1.9 mg/dL (1.6-2.3); POTASSIUM 3.2 mmol/l (3.5-5.1); TOTAL PROTEIN 4.9 g/dL (6.3-8.2)
[2024-09-12 06:55] VITALS: BP 134/79
[2024-09-12] MEDS ORDERED: POTASSIUM CHLORIDE 20 MEQ/PKT POWDER PO SCH (08:30)
[2024-09-12 10:38] VITALS: BP 120/63
[2024-09-12 15:12] VITALS: BP 126/72
--- NOTE | 2024-09-12 17:45 | NUR ---
Patient is more awake today and talking. Diet changed to puree. Hospice nurse in today. Plan for home with hospice. Continues with sitter. No agitation.
--- NOTE | 2024-09-12 20:15 | NUR ---
PATIENT OBSERVED TO BE RESTING IN BED AWAKE. FAMILY AT BEDSIDE AND SITTER AT BEDSIDE. BEDSIDE ASSESSMENT COMPLETE. EUQAL UNLABORED RESP. NO VISUAL SIGNS OF DISTRESS. A&0 X1. NO COMPLAINTS OF PAIN AT THIS TIME. PUREWICK IN PLACE WITH YELLOW URINE. SAFTY PRECAUTIONS IN PLACE. BED AT LOWEST POSITION. CALL LIGHT WITH IN REACH.
[2024-09-12 20:49] VITALS: BP 127/68
[2024-09-12] MEDS ORDERED: QUEtiapine FUMERATE 25 MG/TAB PO SCH (21:00)
[2024-09-13] VITALS: BP 125/60
[2024-09-13 00:05] VITALS: BP 125/60
--- NOTE | 2024-09-13 00:24 | NUR ---
PATIENT OBSERVED TO BE RESTING IN BED WITH EYES CLOSED. SITTER AT BED SIDE. NO VISUAL SIGNS OF DISTRESS. PURWICK IN PLACE, WITH DARK MYNOR URINE. BED AT LOWEST POSITION. CALL LIGTH WITH IN REACH.
[2024-09-13 04:03] VITALS: BP 119/72
--- NOTE | 2024-09-13 04:29 | NUR ---
PATIENT IN ROOM RESTING IN BED WITH EYES CLOSED. SITTER AT BEDSIDE. EQUAL UNLABORED RESP. NO VISUAL SIGNS OF DISTRESS. SAFTY PRECAUTIONS IN PLACE. BED AT LOWEST POSITION. CALL LIGHT WIT HIN REACH.
[2024-09-13 06:02] VITALS: BP 113/80
[2024-09-13 08:41] VITALS: BP 113/80
[2024-09-13] MEDS ORDERED: DONEPEZIL HYDROC5 MG PO (10:57)
[2024-09-13] MEDS ORDERED: QUETIAPINE FUMA25 MG PO (10:58)
== END 2024-09-13 16:15 | disposition hospice, home (50) | DRG 57 ==
LOC: ED 15:47 → ED-I 19:29 → ED 19:47 → MS2 19:48
PROVIDERS: Emergency Medicine; Internal Medicine; Nurse Practitioner Family; ADMIT Internal Medicine; ATTEND Internal Medicine
DX: G20.C Parkinsonism, unspecified (principal); F02.811 Dementia in other diseases classified elsewhere, unspecified severity, with agitation; F05 Delirium due to known physiological condition; E86.0 Dehydration; D72.829 Elevated white blood cell count, unspecified; G40.909 Epilepsy, unspecified, not intractable, without status epilepticus; I48.0 Paroxysmal atrial fibrillation; F95.9 Tic disorder, unspecified; Z78.1 Physical restraint status; Z87.891 Personal history of nicotine dependence; Z91.81 History of falling; Z66 Do not resuscitate; Z51.5 Encounter for palliative care; Z20.822 Contact with and (suspected) exposure to COVID-19
CPT/HCPCS: J0692; J0696; J1200; J1630; J1650; J2060; J2359; J3370